=== PATIENT | male | born 1950 | race Caucasian/White ===

== ENCOUNTER 2025-05-09 06:17 | Day surgery (SDC) | payer OTHER, MEDICARE ==
[2025-05-04 13:22] VITALS: BMI 25.7
[2025-05-09] MEDS ORDERED: LIDOCAINE HCL/PF 2% SDV 5ML VIAL ONE (07:09)
[2025-05-09] MEDS ORDERED: PROPOFOL 20 ML ONE (07:10)
[2025-05-09] MEDS ORDERED: MIDAZOLAM HCL 2 MG/2 ML SINGLE DOSE VIAL ONE (07:10)
[2025-05-09] MEDS ORDERED: BUPIVACAINE HCL/EPINEPHRINE/PF 30 ML VIAL IJ ONE (07:25)
[2025-05-09] MEDS ORDERED: DEXAMETHASONE SOD PHOSPHATE 4 MG/1 ML VIAL ONE (07:39)
[2025-05-09] MEDS ORDERED: TRANEXAMIC ACID 1000 MG/10 ML VIAL ONE (07:40)
[2025-05-09] MEDS ORDERED: LACTATED RINGERS SOLUTION 1,000 ML IV SCH (07:45)
[2025-05-09] MEDS ORDERED: PROMETHAZINE HCL 25 MG/1 ML VIAL IVPB PRN (07:45)
[2025-05-09] MEDS ORDERED: ONDANSETRON 4 MG/2 ML VIAL IVPUSH PRN (07:45)
[2025-05-09] MEDS ORDERED: KETOROLAC TROMETHAMINE 30 MG/1 ML VIAL ONE (07:47)
[2025-05-09] MEDS: ACETAMINOPHEN 1000 MG/100 ML BAG IVPB ONE (08:42)
[2025-05-09 11:18] VITALS: TEMP 97.2
[2025-05-09 11:22] VITALS: BP 114/62; PULSE 65; RESP 18
== END 2025-05-09 10:10 | disposition home or self-care (01) ==
LOC: FASU 06:17
PROVIDERS: ATTEND Orthopaedic Surgery
PROC: 0SJC4ZZ Inspection of Right Knee Joint, Percutaneous Endoscopic Approach (ICD-10-PCS; principal; 2025-05-09 07:37)
DX: T84.84XD Pain due to internal orthopedic prosthetic devices, implants and grafts, subsequent encounter (principal); Z96.651 Presence of right artificial knee joint; Y79.2 Prosthetic and other implants, materials and accessory orthopedic devices associated with adverse incidents; M65.861 Other synovitis and tenosynovitis, right lower leg
CPT/HCPCS: 82962; 94760